=== PATIENT | female | born 1990 | race Caucasian/White ===

== ENCOUNTER → 2021-10-02 | Outpatient (CLI) | payer OTHER ==
[~2021-10-02] MED LIST: CLEOCIN HCL300 MG PO; HYDROCODON-ACE1 EAC4 PO; LEVOFLOXACIN500 MG PO
== END ==
LOC: ECHO 09:45
DX: Z45.010 Encounter for checking and testing of cardiac pacemaker pulse generator [battery] (principal); Z86.79 Personal history of other diseases of the circulatory system; R00.2 Palpitations; R00.0 Tachycardia, unspecified; I07.1 Rheumatic tricuspid insufficiency
CPT/HCPCS: ECHO; 71046; 93306

== ENCOUNTER → 2021-10-04 | Outpatient (CLI) | payer OTHER | END | disposition home or self-care (01) | LOC: CATH 11:52 | DX: Z45.010 Encounter for checking and testing of cardiac pacemaker pulse generator [battery] (principal); I47.1 Supraventricular tachycardia; F17.200 Nicotine dependence, unspecified, uncomplicated; Z86.79 Personal history of other diseases of the circulatory system; Z79.82 Long term (current) use of aspirin; Z79.899 Other long term (current) drug therapy | CPT/HCPCS: 33213; 99152; 99153; C2621; J1200; J2250; J3010; J3370; J7040; J7050 ==